=== PATIENT | male | born 1995 | race African-American/Black ===

== ENCOUNTER 2022-01-05 15:37 | Emergency (ER) | payer OTHER ==
[2022-01-05 16:05] LABS: BASOPHIL 0.6 % (0-2); EOSINOPHIL 2.1 % (0-5); HCT 43.6 % (42.0-52.0); HGB 15.1 g/dl (13.2-18.0); MCH 30.4 pg (25.0-31.0); MCHC 34.6 g/dL (32.0-36.0); MCV 87.9 fL (78.0-100.0); MONOCYTE 5.6 % (0-12); MPV 10.2 fL (6.0-9.5); NEUTROPHIL 29.9 % (41-80); NRBC 0; PLT 270 K/uL (150-400); RBC 4.96 M/uL (4.70-6.00); RDW 11.7 % (11.5-14.0); WBC 10.2 K/uL (4.0-10.5)
[2022-01-05 16:18] LABS: LYMPHOCYTE 61.5 % (15-48)
[2022-01-05 16:24] LABS: ALBUMIN 4.2 g/dL (3.4-5.0); BILIRUBIN - TOTAL 0.4 mg/dL (0.2-1.0); BUN/CREAT RATIO (CALC) 15.8 RATIO; CREATININE 1.14 mg/dL (0.67-1.17); POTASSIUM 3.2 mmol/L (3.5-5.1); TOTAL PROTEIN 7.2 g/dL (6.4-8.2)
== END 2022-01-05 19:16 | disposition other institution (70) ==
LOC: FER 15:37
PROVIDERS: Emergency Medicine
DX: S32.401A Unspecified fracture of right acetabulum, initial encounter for closed fracture (principal); S02.2XXA Fracture of nasal bones, initial encounter for closed fracture; S00.81XA Abrasion of other part of head, initial encounter; F17.210 Nicotine dependence, cigarettes, uncomplicated; V49.40XA Driver injured in collision with unspecified motor vehicles in traffic accident, initial encounter
CPT/HCPCS: 36415; 70450; 70486; 71250; 72125; 80053; 84484; 85025; 93005; J1170; J2270; J2405; J7030

== ENCOUNTER 2022-02-01 13:07 | Emergency (ER) | payer OTHER ==
[2022-02-01 15:00] LABS: BASOPHIL 0.7 % (0-2); EOSINOPHIL 0.8 % (0-5); HCT 45.4 % (42.0-52.0); HGB 15.7 g/dl (13.2-18.0); LYMPHOCYTE 47.2 % (15-48); MCH 30.5 pg (25.0-31.0); MCHC 34.6 g/dL (32.0-36.0); MCV 88.2 fL (78.0-100.0); MONOCYTE 7.2 % (0-12); MPV 10.5 fL (6.0-9.5); NEUTROPHIL 43.9 % (41-80); NRBC 0; PLT 251 K/uL (150-400); RBC 5.15 M/uL (4.70-6.00); RDW 11.5 % (11.5-14.0); WBC 6.1 K/uL (4.0-10.5)
[2022-02-01 15:07] LABS: INR 1.03 (0.9-1.2); PROTHROMBIN TIME 13.2 SECONDS (11.9-13.9)
[2022-02-01 15:13] LABS: BUN/CREAT RATIO (CALC) 14.3 RATIO; CREATININE 0.91 mg/dL (0.67-1.17); POTASSIUM 4.1 mmol/L (3.5-5.1)
[2022-02-01] MEDS ORDERED: ELIQUIS5 MG PO (15:46)
== END 2022-02-01 15:55 | disposition home or self-care (01) ==
LOC: FER 13:07
PROVIDERS: Emergency Medicine
DX: I82.451 Acute embolism and thrombosis of right peroneal vein (principal)
CPT/HCPCS: 36415; 80048; 85025; 85610; 93971